=== PATIENT | female | born 1950 | race Caucasian/White ===

== ENCOUNTER → 2016-11-17 | Outpatient (CLI) | payer BC ==
--- NOTE | 2016-11-17 10:47 | MM ---
Reason for exam: screening (asymptomatic). Last mammogram was performed 1 year ago. History: Patient is postmenopausal, has history of endometrial cancer at age 57, and is nulliparous. Benign right mammotome panel of the right breast, March 04, 2009. Physical Findings: A clinical breast exam by your physician is recommended on an annual basis and results should be correlated with mammographic findings. MG Screening Mammo w CAD Bilateral CC and MLO view(s) were taken. Prior study comparison: November 05, 2015, bilateral MG screening mammo w CAD. November 02, 2014, bilateral MG screening mammo w CAD. October 27, 2013, bilateral digital screening mammo w/CAD. There are scattered fibroglandular densities. Previous mammotome biopsy within the right breast. There is no discrete abnormality. ASSESSMENT: Benign, BI-RAD 2 RECOMMENDATION: Routine screening mammogram of both breasts in 1 year.
== END ==
LOC: RADMAMWWP 07:46
PROVIDERS: ATTEND Obstetrics & Gynecology
DX: Z12.31 Encounter for screening mammogram for malignant neoplasm of breast (principal)

== ENCOUNTER → 2017-11-22 | Outpatient (CLI) | payer MEDICARE ==
--- NOTE | 2017-11-23 13:47 | MM ---
Reason for exam: screening (asymptomatic). Last mammogram was performed 1 year ago. History: Patient is postmenopausal, has history of endometrial cancer at age 57, and is nulliparous. Benign right mammotome panel of the right breast, March 04, 2009. Physical Findings: A clinical breast exam by your physician is recommended on an annual basis and results should be correlated with mammographic findings. MG Screening Mammo w CAD Bilateral CC and MLO view(s) were taken. Prior study comparison: November 17, 2016, bilateral MG screening mammo w CAD. November 05, 2015, bilateral MG screening mammo w CAD. There are scattered fibroglandular densities. No suspicious abnormality. Right biopsy marker noted. ASSESSMENT: Negative, BI-RAD 1 RECOMMENDATION: Routine screening mammogram of both breasts in 1 year.
== END | disposition home or self-care (01) ==
LOC: RADMAMWWP 13:44
PROVIDERS: ATTEND Internal Medicine
DX: Z12.31 Encounter for screening mammogram for malignant neoplasm of breast (principal)
CPT/HCPCS: 77067

== ENCOUNTER → 2018-11-25 | Outpatient (CLI) | payer MEDICARE ==
--- NOTE | 2018-11-29 09:22 | MM ---
Reason for exam: screening (asymptomatic). Last mammogram was performed 1 year ago. History: Patient is postmenopausal, has history of endometrial cancer at age 57, and is nulliparous. Benign right mammotome panel of the right breast, March 04, 2009. Physical Findings: A clinical breast exam by your physician is recommended on an annual basis and results should be correlated with mammographic findings. MG Screening Mammo w CAD Bilateral CC and MLO view(s) were taken. Prior study comparison: November 22, 2017, bilateral MG screening mammo w CAD. November 17, 2016, bilateral MG screening mammo w CAD. The breast tissue is heterogeneously dense. This may lower the sensitivity of mammography. Previous mammotome biopsy in the right breast. There is no discrete abnormality. No significant changes when compared with prior studies. ASSESSMENT: Benign, BI-RAD 2 RECOMMENDATION: Routine screening mammogram of both breasts in 1 year.
== END | disposition home or self-care (01) ==
LOC: RADMAMWWP 08:33
PROVIDERS: ATTEND Internal Medicine
DX: Z12.31 Encounter for screening mammogram for malignant neoplasm of breast (principal)
CPT/HCPCS: 77067

== ENCOUNTER → 2020-02-12 | Outpatient (CLI) | payer MEDICARE ==
--- NOTE | 2020-02-14 13:30 | MM ---
Reason for exam: screening (asymptomatic). Last mammogram was performed 1 year and 3 months ago. History: Patient is postmenopausal, has history of endometrial cancer at age 57, and is nulliparous. Benign right mammotome panel of the right breast, March 04, 2009. Took hormonal contraceptives for 10 years. Physical Findings: A clinical breast exam by your physician is recommended on an annual basis and results should be correlated with mammographic findings. MG Screening Mammo w CAD Bilateral CC and MLO view(s) were taken. Prior study comparison: November 25, 2018, bilateral MG screening mammo w CAD. November 22, 2017, bilateral MG screening mammo w CAD. There are scattered fibroglandular densities. Previous mammotome biopsy in the right breast. No significant changes when compared with prior studies. ASSESSMENT: Benign, BI-RAD 2 RECOMMENDATION: Routine screening mammogram of both breasts in 1 year.
== END | disposition home or self-care (01) ==
LOC: RADMAMWWP 08:04
PROVIDERS: ATTEND Internal Medicine
DX: Z12.31 Encounter for screening mammogram for malignant neoplasm of breast (principal)
CPT/HCPCS: 77067

== ENCOUNTER 2020-10-08 18:47 | Emergency (ER) | payer MEDICARE ==
[2020-10-08] MEDS ORDERED: SODIUM CHLORIDE 0.9% 1,000 ML IV STA (18:53)
--- NOTE | 2020-10-08 18:55 | ED ---
General Adult HPI - General Stated complaint: Syncope - History of Present Illness Initial comments: Dictation was produced using [employer] dictation software. please excuse any grammatical, word or spelling errors. This patient was cared for during a federal and state declared state of emergency secondary to Covid 19 Chief Complaint: 69-year-old female presents to the emergency department for lightheadedness, nausea vomiting History of Present Illness: She is 69-year-old female she woke this morning feeling completely fine. Around 3 PM she went to donate blood. Patient states that she is O+. She had her hemoglobin checked prior to giving blood was found to be 13. She was feeling fine during the blood donation. Immediately after she been feeling slightly weak. She had dinner today when immediately after the meal she began feeling very faint and lightheaded. She had multiple bouts of nonbilious nonbloody emesis. EMS was called patient was brought to the emergency department. EMS measured a normal blood glucose. She was given 1 L normal saline bolus. She had normal vitals. Patient has no pain. Denies a sensation of the room spinning. She feels much better after having been given the Zofran. The ROS documented in this emergency department record has been reviewed and confirmed by me. Those systems with pertinent positive or negative responses have been documented in the HPI. All other systems are other negative and/or noncontributory. PHYSICAL EXAM: General Impression: Alert and oriented x3, not in acute distress HEENT: Normocephalic atraumatic, extra-ocular movements intact, pupils equal and reactive to light bilaterally, mucous membranes moist. Cardiovascular: Heart regular rate and rhythm Chest: Able to complete full sentences, no retractions, no tachypnea Abdomen: abdomen soft, non-tender, non-distended, no organomegaly Musculoskeletal: Pulses present and equal in all extremities, no peripheral edema Motor: no focal deficits noted Neurological: CN II-XII grossly intact, no focal motor or sensory deficits noted Skin: Intact with no visualized rashes Psych: Normal affect and mood ED course: 69-year-old female presents with nausea vomiting after giving blood today. Vital signs upon arrival are within acceptable limits. Laboratory evaluation obtained. CBC is unremarkable. Patient hemoglobin is 11.5. She was told that her hemoglobin was 13 before blood transfusion. Metabolic panel is unremarkable. Patient observed in the emergency department for approximately an hour and 30 minutes. She is given 2 L of normal saline. She was reevaluated at bedside at 8:00 PM with improvement of symptoms. At this point patient is clear for discharge. She is agreeable to disposition. She is advised to rest and increase her oral hydration and avoid any significant exertional activity in the meantime. Return parameters discussed. Patient be discharged. is at home with her and can help take care of her. EKG interpretation: Ventricular rate 70, sinus bradycardia,. Interval 84, QRS 70, QTc 436. No NE prolongation, no QTC prolongation, no ST or T-wave changes noted. Overall, this EKG is unremarkable - Related Data Home Medications Medication Instructions Recorded Confirmed Ascorbic Acid [Vitamin C] 1,000 mg PO DAILY 10/08/20 10/08/20 Calcium Carbonate [Calcium] 600 mg PO DAILY 10/08/20 10/08/20 Cholecalciferol [Vitamin D3 (25 25 mcg PO DAILY 10/08/20 10/08/20 Mcg = 1000 Iu)] Levothyroxine Sodium [Synthroid] 75 mcg PO DAILY 10/08/20 10/08/20 Turmeric Root Extract [Turmeric] 500 mg PO DAILY 10/08/20 10/08/20 Vitamin E 400 unit PO DAILY 10/08/20 10/08/20 Previous Rx's Medication Instructions Recorded Ondansetron Odt [Zofran Odt] 4 mg PO Q8HR PRN #12 tab 10/08/20 Allergies Allergy/AdvReac Type Severity Reaction Status Date / Time codeine Allergy Nausea & Verified 10/08/20 19:14 Vomiting painkillers AdvReac Confusion Uncoded 10/08/20 18:56 Review of Systems ROS Statement: Those systems with pertinent positive or pertinent negative responses have been documented in the HPI. ROS Other: All systems not noted in ROS Statement are negative. Past Medical History Past Medical History: Cancer Additional Past Medical History / Comment(s): Uterine "Glandular" stage 1 grade 4, hysterectomy-no chemo/rad. 2007 History of Any Multi-Drug Resistant Organisms: None Reported Past Surgical History: Hysterectomy Past Anesthesia/Blood Transfusion Reactions: No Reported Reaction Past Alcohol Use History: Occasional Past Drug Use History: None Reported Course Vital Signs 10/08/20 18:52 Temperature 98.2 F Pulse Rate 64 Respiratory 18 Rate Blood Pressure 145/68 O2 Sat by Pulse 98 Oximetry Medical Decision Making - Lab Data Result diagrams: 10/08/20 19:10 10/08/20 19:10 Lab Results 10/08/20 10/08/20 Range/Units 19:10 19:10 WBC 6.4 (3.8-10.6) k/uL RBC 3.62 L (3.80-5.40) m/uL Hgb 11.5 (11.4-16.0) gm/dL Hct 33.8 L (34.0-46.0) % MCV 93.2 (80.0-100.0) fL MCH 31.8 (25.0-35.0) pg MCHC 34.2 (31.0-37.0) g/dL RDW 12.2 (11.5-15.5) % Plt Count 164 (150-450) k/uL MPV 8.8 Neutrophils % 39 % Lymphocytes % 46 % Monocytes % 5 % Eosinophils % 7 % Basophils % 1 % Neutrophils # 2.5 (1.3-7.7) k/uL Lymphocytes # 3.0 (1.0-4.8) k/uL Monocytes # 0.3 (0-1.0) k/uL Eosinophils # 0.5 (0-0.7) k/uL Basophils # 0.0 (0-0.2) k/uL Sodium 136 L (137-145) mmol/L Potassium 3.6 (3.5-5.1) mmol/L Chloride 107 (98-107) mmol/L Carbon Dioxide 24 (22-30) mmol/L Anion Gap 5 mmol/L BUN 11 (7-17) mg/dL Creatinine 0.65 (0.52-1.04) mg/dL Est GFR (CKD-EPI)AfAm >90 (>60 ml/min/1.73 sqM) Est GFR (CKD-EPI)NonAf >90 (>60 ml/min/1.73 sqM) Glucose 112 H (74-99) mg/dL Calcium 8.3 L (8.4-10.2) mg/dL Magnesium 1.8 (1.6-2.3) mg/dL Total Bilirubin 0.2 (0.2-1.3) mg/dL AST 22 (14-36) U/L ALT 15 (4-34) U/L Alkaline Phosphatase 53 (38-126) U/L Total Protein 5.6 L (6.3-8.2) g/dL Albumin 3.4 L (3.5-5.0) g/dL Disposition Clinical Impression: Nausea & vomiting Disposition: HOME SELF-CARE Condition: Fair Instructions (If sedation given, give patient instructions): Acute Nausea and Vomiting (ED) Additional Instructions: Please seek medical attention with any symptoms of worsening nausea, progressive vomiting that is not controlled with oral antiemetics. Prescriptions: Ondansetron Odt [Zofran Odt] 4 mg PO Q8HR PRN #12 tab PRN Reason: Nausea Is patient prescribed a controlled substance at d/c from ED?: No Referrals: Que Bernard MD [Primary Care Provider] - 1-2 days Time of Disposition: 19:59
[2020-10-08 18:56] VITALS: BP 145/68
[2020-10-08 19:18] LABS: Basophils % (A) 1 %; Eosinophils # (A) 0.5 k/uL (0-0.7); Eosinophils % (A) 7 %; HCT 33.8 % (34.0-46.0); HGB 11.5 gm/dL (11.4-16.0); Lymphocytes % (A) 46 %; MCH 31.8 pg (25.0-35.0); MCHC 34.2 g/dL (31.0-37.0); MCV 93.2 fL (80.0-100.0); Mean Platelet Volume 8.8; Monocytes # (A) 0.3 k/uL (0-1.0); Monocytes % (A) 5 %; Neutrophils # (A) 2.5 k/uL (1.3-7.7); Neutrophils % (A) 39 %; Platelet Count 164 k/uL (150-450); RBC 3.62 m/uL (3.80-5.40); RDW 12.2 % (11.5-15.5); WBC 6.4 k/uL (3.8-10.6)
[2020-10-08 19:28] LABS: ALT 15 U/L (4-34); AST 22 U/L (14-36); African American GFR (CKD) >90 (>60 ml/min/1.73 sqM); Albumin 3.4 g/dL (3.5-5.0); Alkaline Phosphatase 53 U/L (38-126); Anion Gap 5 mmol/L; Blood Urea Nitrogen 11 mg/dL (7-17); Calcium 8.3 mg/dL (8.4-10.2); Carbon Dioxide 24 mmol/L (22-30); Chloride 107 mmol/L (98-107); Glucose 112 mg/dL (74-99); Magnesium 1.8 mg/dL (1.6-2.3); Non-African American GFR(CKD) >90 (>60 ml/min/1.73 sqM); Potassium 3.6 mmol/L (3.5-5.1); Sodium 136 mmol/L (137-145); Total Bilirubin 0.2 mg/dL (0.2-1.3); Total Protein 5.6 g/dL (6.3-8.2)
[2020-10-08] MEDS ORDERED: ONDANSETRON 4 MG ODT STARTER PACK 2 TAB BTL PO STA (19:59)
[2020-10-08 20:25] VITALS: PULSE 66; RESP 16; TEMP 97.5
== END 2020-10-08 20:25 | disposition home or self-care (01) ==
LOC: EC 18:47
DX: R11.2 Nausea with vomiting, unspecified (principal); Z90.710 Acquired absence of both cervix and uterus
CPT/HCPCS: 36415; 93005; 80053; 83735; 85025; 99284; 96360; S0119

== ENCOUNTER → 2020-10-30 | Outpatient (CLI) | payer MEDICARE ==
--- NOTE | 2020-10-30 16:27 | MR ---
Brain MRI without contrast HISTORY: Convulsions, dizziness Multiplanar multisequence imaging to the brain, correlation to prior brain MRI 09/10/2012 which is inco mpletely There is no restricted diffusion to suggest subacute ischemia. Corpus callosum, pituitary, cervical m edullary junction, cerebellopontine angles are stable, there may be a posterior fossa arachnoid cyst which is unchanged inferior aspect of the posterior fossa as on prior. There is inflammatory change p resent within the ethmoid air cells and frontal, maxillary and sphenoid sinus. Orbits show symmetric appearance. There is no hemorrhage or hydrocephalus. There are some scattered hyperintensities within the deep white matter and inversion recovery T2-weighted sequences, extreme capsule noted focus mario ures approximately 4 mm on axial image 15, approximately 3-5 lesions are present. IMPRESSION: No acute brain abnormality. Sinus disease. Nonspecific white matter demyelination questio nable clinical significance.
== END | disposition home or self-care (01) ==
LOC: RADMRIMAIN 14:03
PROVIDERS: ATTEND Internal Medicine
DX: G37.8 Other specified demyelinating diseases of central nervous system (principal)
CPT/HCPCS: 70551

== ENCOUNTER → 2020-11-27 | Outpatient (CLI) | payer MEDICARE ==
--- NOTE | 2020-12-03 12:08 | HM ---
HOLTER MONITOR REPORT Patient was monitored for 48 hours. The baseline rhythm is sinus mechanism with borderline first-degree AV block. The average rate 65 beats per minute, minimum 43, maximum 100 beats per minute. Ventricular ectopic activity was present in the form of rare single PVCs. Supraventricular ectopic activity was present in the form of rare single PACs and short burst of supraventricular tachycardia was noted. No diary was available. No atrial fibrillation was noted. CONCLUSION: 1. Sinus mechanism baseline rhythm. 2. Rare ventricular ectopic activity. 3. Rare supraventricular ectopic activity. 4. No diary was available. MMODL / IJN: [id number] /
== END | disposition home or self-care (01) ==
LOC: RADECHMAIN 12:26
PROVIDERS: ATTEND Psychiatry & Neurology Neurology
DX: R40.20 Unspecified coma (principal)
CPT/HCPCS: 93225; 93226

== ENCOUNTER → 2021-03-10 | Outpatient (CLI) | payer MEDICARE ==
--- NOTE | 2021-03-17 10:22 | MM ---
Reason for exam: screening (asymptomatic). Last mammogram was performed 1 year and 1 month ago. History: Patient is postmenopausal, has history of endometrial cancer at age 57, and is nulliparous. Benign right mammotome panel of the right breast, March 04, 2009. Took hormonal contraceptives for 10 years. Physical Findings: A clinical breast exam by your physician is recommended on an annual basis and results should be correlated with mammographic findings. MG Screening Mammo w CAD Bilateral CC and MLO view(s) were taken. Prior study comparison: February 12, 2020, bilateral MG screening mammo w CAD. November 25, 2018, bilateral MG screening mammo w CAD. There are scattered fibroglandular densities. Previous mammotome biopsy in the right breast. Lateral posterior right CC asymmetric density is unchanged. No significant changes when compared with prior studies. ASSESSMENT: Negative, BI-RAD 1 RECOMMENDATION: Routine screening mammogram of both breasts in 1 year.
== END | disposition home or self-care (01) ==
LOC: RADMAMWWP 15:31
PROVIDERS: ATTEND Family Medicine
DX: Z12.31 Encounter for screening mammogram for malignant neoplasm of breast (principal)
CPT/HCPCS: 77067

== ENCOUNTER → 2022-03-11 | Outpatient (CLI) | payer MEDICARE ==
--- NOTE | 2022-03-12 07:53 | MM ---
Reason for Exam: Screening (asymptomatic). Last screening mammogram was performed 12 month(s) ago. Patient History: Menarche at age 13. Patient has no children. Left ovary removed at age 57. Right ovary removed at age 57. Hysterectomy at age 57. Postmenopausal. Endometrial cancer, age 57. Patient used Hormonal Contraceptives for 10 years. 03/04/2009, Benign Core Biopsy on the right side. Risk Values: Yancy 5 year model risk: 2.3%. NCI Lifetime model risk: 6.6%. Prior Study Comparison: 11/25/2018 Bilateral Screening Mammogram, [facility]. 02/12/2020 Bilateral Screening Mammogram, [facility]. 03/10/2021 Bilateral Screening Mammogram, [facility]. Tissue Density: There are scattered fibroglandular densities. Findings: Analyzed By CAD. There is no suspicious group of microcalcifications or new suspicious mass in either breast. No significant change from prior examinations. Overall Assessment: Negative, BI-RAD 1 Management: Screening Mammogram of both breasts in 1 year. A clinical breast exam by your physician is recommended on an annual basis and results should be correlated with mammographic findings. Electronically signed and approved by: Keyshawn Licea D.O.
== END | disposition home or self-care (01) ==
LOC: RADMAMWWP 09:06
PROVIDERS: ATTEND Family Medicine
DX: Z12.31 Encounter for screening mammogram for malignant neoplasm of breast (principal)
CPT/HCPCS: 77067

== ENCOUNTER → 2022-08-17 | Outpatient (CLI) | payer MEDICARE ==
--- NOTE | 2022-08-17 09:26 | BD ---
EXAMINATION TYPE: Axial Bone Density DATE OF EXAM: 08/17/2022 COMPARISON: NONE CLINICAL HISTORY: 71 years year old Female. ICD-10 CODE: M85.88 OTH DISRD OF BONE DENSITY AND STRUCT URE, OT postmenopausal female Height: 5 FT 3 IN Weight: 139 FRAX RISK QUESTIONS: Alcohol (3 or more units per day): NO Family History (Parent hip fracture): NO Glucocorticoids (More than 3mos): NO (Ex: prednisone, prednisolone, methylprednisolone, dexamethasone, and hydrocortisone). History of Fracture in Adulthood: NO Secondary Osteoporosis: 1. Type 1 Diabetes: NO 2. Hyperthyroidism: NO 3. Menopause before 45: NO 4. Malnutrition: NO 5. Chronic liver disease: NO Rheumatoid Arthritis: NO Current Tobacco Use: NO RISK FACTORS HISTORY OF: Surgery to Spine/Hip(right/left)/Wrist (right/left): NO Family History of Osteoporosis YES: Active: YES Diet low in dairy products/other sources of calcium: NO Postmenopausal woman: YES Take estrogen and/or progesterone medications: NO Lost more than 2 inches in height since high school: NO Frequent falls: NO Poor Health: GOOD Hyperparathyroidism: NO Adrenal Insufficiency: NO MEDICATIONS: Thyroid Medications: YES Which medication: LEVOTHYROXINE How Long: APPROX 10 YEARS Additional Medications: LEVOTHYROXINE, Additional History: EXAM MEASUREMENTS: Bone mineral densitometry was performed using the [employer] System. Bone mineral density as measured about the Lumbar spine is: ----- L1-L4(G/cm2): 1.071 T Score Values are as follows: ----- L1: -1.7 ----- L2: -0.9 ----- L3: -0.8 ----- L4: -0.6 ----- L1-L4: -0.9 PREV DONE ELSEWHERE Bone mineral density about the R hip (g/cm2): 0.839 Bone mineral density about the L hip (g/cm2): 0.816 T Score values are as follows: -----R Neck: -1.4 -----L Neck: -1.6 -----R Total: -1.6 -----L Total: -1.7 PREV DONE ELSEWHERE FRAX%s: The graph provided illustrates a 10.4 % chance for a major osteoporotic fx and a 1.7 % chance for the hips probability for fx in 10 years time. IMPRESSION: Osteopenia (T Score between -2.5 and -1). There is slightly increased risk of fracture and the patient may be considered for treatment. Re-Screen 2-5 years. NOTE: T-SCORE=SD OF THE YOUNG ADULT MEAN.
== END | disposition home or self-care (01) ==
LOC: RADBDWWP 07:56
PROVIDERS: ATTEND Family Medicine
DX: M85.88 Other specified disorders of bone density and structure, other site (principal); M85.89 Other specified disorders of bone density and structure, multiple sites
CPT/HCPCS: 77080

== ENCOUNTER → 2023-03-12 | Outpatient (CLI) | payer MEDICARE ==
--- NOTE | 2023-03-15 08:22 | MM ---
Reason for Exam: Screening (asymptomatic). Last screening mammogram was performed 12 month(s) ago. Patient History: Menarche at age 13. Patient has no children. Left ovary removed at age 57. Right ovary removed at age 57. Hysterectomy at age 57. Postmenopausal. Endometrial cancer, age 57. Patient used Hormonal Contraceptives for 10 years. 03/04/2009, Benign Core Biopsy on the right side. Risk Values: Yancy 5 year model risk: 2.3%. NCI Lifetime model risk: 6.3%. Prior Study Comparison: 02/12/2020 Bilateral Screening Mammogram, [facility]. 03/10/2021 Bilateral Screening Mammogram, [facility]. 03/11/2022 Bilateral MG screening mammo w CAD, [facility]. Tissue Density: The breast tissue is almost entirely fat. Findings: Analyzed By CAD. Right breast biopsy clips. There is no suspicious group of microcalcifications or new suspicious mass in either breast. Overall Assessment: Negative, BI-RAD 1 Management: Screening Mammogram of both breasts in [address] [facility] will attempt to contact patient to return for supplemental views and ultrasound if indicated. Patient should continue monthly self-breast exams. A clinical breast exam by your physician is recommended on an annual basis. This exam should not preclude additional follow-up of suspicious palpable abnormalities. Note on Yancy scores and lifetime risk: 1. A Yancy score greater than 3% is considered moderate risk. If this is the case, consider specialist referral to assess eligibility for a risk reducing agent. 2. If overall lifetime risk for the development of breast cancer is 20% or higher, the patient may qualify for future screening with alternating mammogram and breast MRI. Electronically signed and approved by: Darwin Vo DO
== END | disposition home or self-care (01) ==
LOC: RADMAMWWP 09:35
PROVIDERS: ATTEND Family Medicine
DX: Z12.31 Encounter for screening mammogram for malignant neoplasm of breast (principal); Z78.0 Asymptomatic menopausal state
CPT/HCPCS: 77067

== ENCOUNTER → 2024-03-16 | Outpatient (CLI) | payer MEDICARE ==
--- NOTE | 2024-04-11 09:36 | MM ---
Reason for Exam: Screening (asymptomatic). Last screening mammogram was performed 12 month(s) ago. Patient History: Menarche at age 13. Patient has no children. Left ovary removed at age 57. Right ovary removed at age 57. Hysterectomy at age 57. Postmenopausal. Patient used Hormonal Contraceptives for 10 years. 03/04/2009, Benign Core Biopsy on the right side. Risk Values: Yancy 5 year model risk: 2.3%. NCI Lifetime model risk: 6.0%. Prior Study Comparison: 03/10/2021 Bilateral Screening Mammogram, [facility]. 03/11/2022 Bilateral MG screening mammo w CAD, [facility]. 03/12/2023 Bilateral MG screening mammo w CAD, [facility]. Tissue Density: The breasts are almost entirely fatty. Findings: Analyzed By CAD. Right breast biopsy clip. Right breast: There is no suspicious group of microcalcifications or new suspicious mass. Left breast: There is no suspicious group of microcalcifications or new suspicious mass. Overall Assessment: Negative, BI-RAD 1 Management: Screening Mammogram of both breasts in [address] [facility] will attempt to contact patient to return for supplemental views and ultrasound if indicated. Patient should continue monthly self-breast exams. A clinical breast exam by your physician is recommended on an annual basis. This exam should not preclude additional follow-up of suspicious palpable abnormalities. Note on Yancy scores and lifetime risk: 1. A Yancy score greater than 3% is considered moderate risk. If this is the case, consider specialist referral to assess eligibility for a risk reducing agent. 2. If overall lifetime risk for the development of breast cancer is 20% or higher, the patient may qualify for future screening with alternating mammogram and breast MRI. Electronically signed and approved by: Darwin Vo DO
== END | disposition home or self-care (01) ==
LOC: RADMAMWWP 12:00
PROVIDERS: ATTEND Family Medicine
DX: Z12.31 Encounter for screening mammogram for malignant neoplasm of breast
CPT/HCPCS: 77063; 77067